=== PATIENT | female | born 1990 | race Caucasian/White ===

== ENCOUNTER 2020-04-19 09:10 | Outpatient (REF) | payer MEDICAID, SELFPAY | END 2020-04-19 09:11 | disposition home or self-care (01) | LOC: HO.LAB 09:10 | PROVIDERS: PCP Internal Medicine; Visit Provider Internal Medicine | DX: Z20.822 Contact with and (suspected) exposure to COVID-19 (principal) | CPT/HCPCS: 36415; C9803; U0003; U0005 ==

== ENCOUNTER 2021-08-01 10:36 | Outpatient (REF) | payer MEDICAID, SELFPAY ==
--- NOTE | ~2021-08-01 | XR_ITS ---
EXAMINATION: XR KNEE, RIGHT CLINICAL INFORMATION: Pain COMPARISON: None TECHNIQUE: Four views of the right knee. FINDINGS: Bones and soft tissues are normal. No fracture or joint effusion. Alignment is anatomic. Joint spaces are well maintained. No abnormal soft tissue calcification. XR/XR knee RT 3V IMPRESSION: Unremarkable right knee.
== END 2021-08-01 10:37 | disposition home or self-care (01) ==
LOC: HO.XRAY 10:36
PROVIDERS: PCP Internal Medicine; Visit Provider Internal Medicine
DX: M25.561 Pain in right knee (principal)
CPT/HCPCS: 73562

== ENCOUNTER 2022-03-12 10:00 | Outpatient (RCR) | payer MEDICAID, SELFPAY ==
[2022-02-12 10:17] VITALS: BP 142/80; PULSE 81; O2SAT 98
== END 2022-07-12 14:45 | disposition home or self-care (01) ==
LOC: HO.PTWFD 10:00
PROVIDERS: PCP Internal Medicine; Visit Provider General Practice
DX: S93.402D Sprain of unspecified ligament of left ankle, subsequent encounter (principal)
CPT/HCPCS: 97110; 97140; 97161; 97535

== ENCOUNTER 2023-01-23 10:36 | Outpatient (REF) | payer MEDICAID, SELFPAY ==
--- NOTE | ~2023-01-23 | XR_ITS ---
EXAMINATION: XR CHEST CLINICAL INFORMATION: Cough and left lateral chest pain COMPARISON: February 2019. TECHNIQUE: 2 views of the chest were obtained. FINDINGS: No airspace consolidation or pneumothorax seen. Minimal linear atelectatic change observed toward the left base. The hilar regions and pulmonary vascularity appear to be stable. Pleural surfaces are clear. XR/XR chest 2V IMPRESSION: No consolidations or effusions. Minimal linear atelectasis toward the left base.
== END 2023-01-23 10:37 | disposition home or self-care (01) ==
LOC: HO.HHCX 10:36
PROVIDERS: Visit Provider Emergency Medicine
DX: R07.9 Chest pain, unspecified (principal)
CPT/HCPCS: 71046

== ENCOUNTER 2023-04-18 16:00 | Outpatient (REF) | payer MEDICAID, SELFPAY | END 2023-04-18 16:01 | disposition home or self-care (01) | LOC: HO.HHCLNP 16:00 | PROVIDERS: Visit Provider Student in an Organized Health Care Education/Training Program | DX: J02.9 Acute pharyngitis, unspecified (principal) | CPT/HCPCS: 87070; 87147 ==

== ENCOUNTER 2024-06-23 15:20 | Outpatient (REF) | payer MEDICAID, SELFPAY ==
[2024-06-23 16:03] LABS: MANUAL DIFF FLAG NO
[2024-06-23 16:08] LABS: Basophils Absolute Auto 0.1 X10*3/uL (0.0-0.2); Basophils Percent Auto 0.5 % (0-2); Eosinophils Absolute Auto 0.1 X10*3/uL (0.0-0.4); Eosinophils Percent Auto 1.2 % (0-4); Hematocrit 41.2 % (37.0-47.0); Hemoglobin 13.4 g/dl (12.0-16.0); Imm Gran Abs Auto 0.03 X10*3/uL (0.00-0.03); Imm Gran Pct Auto 0.3 % (0.0-0.4); Lymphocytes Percent Auto 27.6 % (20-40); Mean Corpuscular HGB Conc 32.5 g/dl (31.0-35.0); Mean Corpuscular Volume 86.2 fL (80.0-98.0); Mean Platelet Volume 11.7 fL (9.4-12.3); Monocytes Absolute Auto 0.9 X10*3/uL (0.1-1.2); Monocytes Percent Auto 8.3 % (2-11); Neutrophils Absolute Auto 6.7 x10*3/uL (2.0-8.3); Neutrophils Percent Auto 62.1 % (45-73); Platelet Count 269 X10*3/uL (160-400); Red Blood Count 4.78 X10*6/uL (4.20-5.50); Red Cell Distribution Width 13.3 % (11.0-16.0); White Blood Count 10.8 X10*3/uL (4.8-10.8)
[2024-06-23 16:11] LABS: Estimated Average Glucose 123 mg/dL; Hemoglobin A1C 145.0137 umol/L; Hemoglobin A1c % 5.9 % (<6.0); Total Hemoglobin (HGBA1C) 3531.9435 umol/L
[2024-06-23 16:22] LABS: Anion Gap 11 (12-20)
[2024-06-23 16:26] LABS: Alanine Aminotransferase 19 U/L (0-31); Albumin Level 4.1 g/dL (3.5-5.0); Alkaline Phosphatase 81 U/L (39-117); Bilirubin Direct < 0.2 mg/dL (0.0-0.5); Bilirubin Total 0.2 mg/dL (0.0-1.0); Blood Urea Nitrogen 9 mg/dL (9-16); Calcium 9.1 mg/dL (8.4-10.2); Carbon Dioxide 25 mmol/L (22-29); Chloride 107 mmol/L (96-108); Cholesterol 224 mg/dL (<200); Estimated Glomerular Filt Rate > 60; Glucose Random 95 mg/dL (60-115); HDL Cholesterol 48 mg/dL (>40); Potassium 3.8 mmol/L (3.3-5.1); Sodium 139 mmol/L (135-145); Total Protein 7.3 g/dL (6.5-8.0); Triglycerides 481 mg/dL (<150)
[2024-06-23 16:40] LABS: Aspartate Amino Transferase 22 U/L (5-31)
[2024-06-23 16:50] LABS: TSH reflex Free T4 0.94 uIU/mL (0.32-4.0); Vitamin D 25-OH Total 15.5 ng/mL (>30)
--- OUTSIDE RECORDS SUMMARY | 2024-06-23 18:11 | XMS_ITS | Encounter Summary ---
Author Organization [employer] Address [address] [place] [address] Care Team Providers Care Security Risk Analyst Name Role Phone Mary Jenkins MD Primary Care Provide r Encounter Details Date Type Department Care Team ([facility] Contact Info) Description 01/30/2023 Orders Only [facility] [address] [place] [phone] Jose Fish MD [address] [place] [phone] Social History Tobacco Use Types Packs/Day Years Used Date Smoking Tobacco: Every Day Cigarettes Smokeless Tobacco: Never Alcohol Use Standard Drinks/Week Comments Yes 0 (1 standard drink = 0.6 oz pur e alcohol) Occasionally Comments Unknown Sex and Gender Information Value Date Recorded Sex Assigned at Female 12/25/2021 10:15 AM EDT Legal Sex Female 10:15 AM EDT Gender Identity Female 12/25/2021 10:15 AM EDT Sexual Orientation Straight 12/25/2021 10 :15 AM EDT documented as of this encounter Plan of Treatment Upcoming Encounters Date Type Department Care Team (Late Contact Info) Description 07/30/2024 11:30 AM EDT Telemedicine [facility] [address] [place] [phone] Mary Jenkins MD [address] [place] [phone] documented as of this encounter Visit Diagnoses Not on filedocumented in this encounter Care Teams Security Risk Analyst Relationship Specialty Start Date End Date Mary Jenkins MD [address] [place] [address] PCP - General Family Medicine 01/29/19 documented as of this encounter
--- OUTSIDE RECORDS SUMMARY | 2024-06-23 18:11 | XMS_ITS | Encounter Summary ---
Author Organization [employer] Address [address] [place] [address] Care Team Providers Care Second Ride Fare Collector Name Role Phone Mary Jenkins MD Primary Care Provide r Encounter Details Date Type Department Care Team (Latest Contact Info) Description 06/23/2024 Travel Social History Tobacco Use Types Packs/Day Years Used Date Smoking Tobacco: Every Day Cigarettes Smokeless Tobacco: Never Alcohol Use Standard Drinks/Week Comments Yes 0 (1 standard drink = 0.6 oz pur e alcohol) Occasionally Depression Answer Date Recorded Patient Health Questionnaire-9 Score 4 06/05/2023 Patient Health Questionnaire-9 Score 4 06/05/2023 Last PHQ-9: Questionnaire Data Not on file 0 06/05/2023 Housing Stability Answer Date Recorded What is your housing situation today? I have nilda hurley 05/29/[address] you li ve. Do you have problems with any of the following? None of the above 05/29/2023 Food Insecurity Answer Date Recorded Within the past 12 months, y ou worried that your food would run out before you got money to buy more: Never True 05/29/2023 Within the past 12 months,th e food you bought just didn't last and you didn't have enough money to get more: Never True 04/2023 Transportation Answer Date Recorded In the past 12 months, has l ack of transportation kept you from medical appts, meetings, work or from getting things needed for daily living? No 05/29/2023 Utilities Answer Date Recorded In the past 12 months, has t he electric, gas, oil or water company threatened to shut off services in your home? No 05/29/2023 Depression Answer Date Recorded Patient Health Questionnaire-2 Score 1 06/05/2023 Comments Unknown Sex and Gender Information Value Date Recorded Sex Assigned at Female 12/25/2021 10:15 AM EDT Legal Sex Female 10:15 AM EDT Gender Identity Female 12/25/2021 10:15 AM EDT Sexual Orientation Straight 12/25/2021 10 :15 AM EDT documented as of this encounter Plan of Treatment Upcoming Encounters Date Type Department Care Team (Late st Contact Info) Description 07/30/2024 11:30 AM EDT Telemedicine [facility] [address] [place] [phone] Mary Jenkins MD [address] [place] [address] documented as of this encounter Visit Diagnoses Not on filedocumented in this encounter Additional Health Concerns Assessment Noted Time PHQ-9 Depression Total Score: 4 06/05/19 24 11:00 AM EDT documented as of this encounter Care Teams Second Ride Fare Collector Relationship Specialty Start Date End Date Mary Jenkins MD [address] [place] [address] PCP - General Family Medicine 01/29/19 documented as of this encounter
--- OUTSIDE RECORDS SUMMARY | 2024-06-23 18:11 | XMS_ITS | Encounter Summary ---
Author Organization [employer] Address [address] [place] [address] Care Team Providers Care Machine Clothing Replacer Name Role Phone Mary Jenkins MD Primary Care Provide r Reason for Visit * Reason Onset Date Comments call back requested 01/28/2023 Encounter Details Date Type Department Care Team ([facility] Contact Info) Description 01/28/2023 Telephone [facility] [address] [place], [place] [phone] Mary Jenkins MD [address] [place] [phone] call back requested Social History Tobacco Use Types Packs/Day Years [...] AM EDT documented as of this encounter Miscellaneous Notes * Telephone Encounter - Conchis Santo - 01/28/2023 2:43 PM EST Tc from pt calling requesting a call back with X-ray results. PCP DR. Gruber documented in this encounter Plan of Treatment Upcoming Encounters Date Type Department Care Team ([facility] Contact Info) Description 07/30/2024 11:30 AM EDT Telemedicine [facility] [address] [place] [address] Mary Jenkins MD [address] [place] [phone] documented as of this encounter Visit Diagnoses Not on filedocumented in this encounter Care Teams Machine Clothing Replacer Relationship Specialty Start Date End Date Mary Jenkins MD [address] [place] [phone] PCP - General Family Medicine 01/29/19 documented as of this encounter
--- OUTSIDE RECORDS SUMMARY | 2024-06-23 18:11 | XMS_ITS | Encounter Summary ---
Author Organization [employer] Address [address] [place] [address] Care Team Providers Care Service Order Clerk Name Role Phone Mary Jenkins MD Primary Care Provide r Reason for Visit * Reason Comments Annual Exam Encounter Details Date Type Department Care Team ([facility] Contact Info) Description 06/23/2024 2:45 PM EDT Office Visit [facility] [address] [place], [place] [phone] Mary Jenkins MD [address] [place] [address] Encounter for preventive health examination (Primary Dx); Class 3 severe obesity due to excess calories with serious comorbidity and body mass index (BMI) of 40.0 to 44.9 in adult; SUNITHA (obstructive sleep apnea); Mixed anxiety and depressive disorder; Mild intermittent asthma with acute exacerbation Social History Tobacco Use Types Packs/Day Years Used Date Smoking Tobacco: Every Day Cigarettes Smokeless Tobacco: Never Tobacco Cessation:Ready to Q uit: Not Asked; Counseling Given: Not Answered Alcohol Use Standard Drinks/Week Comments Yes 0 [...] the past 12 months, has t he [employer], gas, oil or water company threatened to [...] AM EDT documented as of this encounter Last Filed Vital Signs Vital Sign Reading Time Taken Comments Blood Pressure 138/82 06/23/2024 2:48 PM EDT Pulse 94 06/23/2024 2:48 PM EDT Temperature 36.2 ??C (97.2 ??F) 06/23/2024 2:48 PM ED T Respiratory Rate 16 06/23/2024 2:48 PM EDT Oxygen Saturation 97% 06/23/2024 2:48 PM EDT Inhaled Oxygen Concentration - - Weight 109 kg (240 lb) 06/23/2024 2:48 PM EDT Height 162.6 cm (5' 4 ) 06/23/2024 2:48 PM EDT Body Mass Index 41.2 06/23/2024 2:48 PM EDT documented in this encounter Progress Notes * Mary Feliciano MD - 06/23/2024 2:45 PM EDT SUBJECTIVE: Martha Valenzuela is a 34 y.o. year old female who presents for Physical . Concerns for today's visit: Occupation:[employer] Lives with:2 kids Social Hx: denies drinking EtOH, smoking cigarettes 1/2 pack daily and denies recreational drug use. Diet:regular Exercise:walks 20min ever day LMP:05/14/24 Pap Smear: due on 11/30/2026 Eye Care:up to date Dental Care:up to date PMHx:see below Immunizations: Reviewed Acute Concerns: Weight concerns she reports she struggles to lose weight she has being trying healthy diet and exercise but instead of losing weight she feels she is gaining weight Social History Social History Narrative Not on file Patient Active Problem List Diagnosis Hypersomnia Mixed anxiety and depressive disorder Prediabetes Tobacco dependence SUNITHA (obstructive sleep apnea) Asthma Pharyngitis Encounter for preventive health examination Class 2 severe obesity due to excess calories with serious comorbidity and body mass index (BMI) of39.0 to 39.9 in adult (CMS/HCC) Class 3 severe obesity due to excess calories with serious comorbidity and body mass index (BMI) of40.0 to 44.9 in adult No family history on file. Review of Systems Constitutional: Positive for unexpected weight change. Negative for activity change, appetite change, chills, diaphoresis, fatigue and fever. HENT: Negative. Respiratory: Negative. Cardiovascular: Negative. OBJECTIVE: Vitals: 06/23/24 1448 BP: 138/82 BP Location: Left arm Patient Position: Sitting BP Cuff Size: Large adult Pulse: 94 Resp: 16 Temp: 97.2 ??F (36.2 ??C) TempSrc: Oral SpO2: 97% Weight: 240 lb (109 kg) Height: 5' 4 (1.626 m) Physical Exam Constitutional: Appearance: Normal appearance. Cardiovascular: Rate and Rhythm: Normal rate and regular rhythm. Pulmonary: Effort: Pulmonary effort is normal. Breath sounds: Normal breath sounds. Abdominal: General: Abdomen is flat. Palpations: Abdomen is soft. Musculoskeletal: Right lower leg: No edema. Left lower leg: No edema. Neurological: Mental Status: She is alert. Follow Up: Follow up for 2 weeks televisit review of labs . Current Outpatient Medications on File Prior to Visit Medication Sig Dispense Refill albuterol 108 (90 Base) MCG/ACT inhaler Inhale 2 puffs every 4 (four) hours if needed for wheezing or shortness of breath. 18 g 2 cholecalciferol (Vitamin D-3) 50 MCG (2000 UT) capsule Take 1 capsule by mouth at bed time. D3 Super Strength 50 MCG (2000 UT) capsule Take 50 mcg by mouth in the morning. ergocalciferol (Vitamin D-2) 1.25 MG (30121 UT) capsule take 1 capsule by oral route every week hydrocortisone 1 % cream Apply topically every 12 (twelve) hours. hydrOXYzine HCl (Atarax) 25 MG tablet Take 25 mg by mouth if needed in the morning and at bedtime. Menthol (Cepacol Sore Throat) 5.4 MG lozenge Dissolve 1 tablet in the mouth every 2 (two) hours if needed (sore throat). 20 lozenge 0 naproxen (Naprosyn) 500 MG tablet Take 1 tablet by mouth every 12 (twelve) hours. nicotine (Nicoderm, Step 1) 21 MG/24HR patch APPLY 1 PATCH TOPICALLY TO THE SKIN DAILY IN THE MORNING THEN REMOVE AT BEDTIME DIRECTED. DO NOT SMOKE WHILE USING PATCH sertraline (Zoloft) 25 MG tablet Take 25 mg by mouth in the morning. Spacer/Aero-Holding Chambers (OptiChamber Naila) misc 1 each every 4 (four) hours if needed (asthma). 1 each 0 tiZANidine (Zanaflex) 2 MG tablet Take 1 tablet (2 mg) by mouth every 6 (six) hours if needed for muscle spasms for up to 10 days. 30 tablet 0 No current facility-administered medications on file prior to visit. Problem List Items Addressed This Visit Class 3 severe obesity due to excess calories with serious comorbidity and body mass index (BMI) of40.0 to 44.9 in adult Extensive counseling about healthy diet and exercise on today I will order TSH with labs and I will follow-up with patient regarding options for weight loss Relevant Orders CBC auto differential Comprehensive Metabolic Panel Hemoglobin A1c HIV-1/2 Antigen and Antibodies, Fourth Generation, with Reflexes Hepatitis C Antibody with Reflex to HCV, RNA, Quantitative, Real-Time PCR Lipid Panel, Standard Vitamin D, 25-Hydroxy, Total, Immunoassay TSH with Reflex to Free T4 SUNITHA (obstructive sleep apnea) Continue to use CPAP every night Encounter for preventive health examination - Primary See HPI Relevant Orders CBC auto differential Comprehensive Metabolic Panel Hemoglobin A1c HIV-1/2 Antigen and Antibodies, Fourth Generation, with Reflexes Hepatitis C Antibody with Reflex to HCV, RNA, Quantitative, Real-Time PCR Lipid Panel, Standard Vitamin D, 25-Hydroxy, Total, Immunoassay TSH with Reflex to Free T4 Mixed anxiety and depressive disorder Counseling done continue with sertraline 25 mg daily Asthma Stable continue with same interventions documented in this encounter Miscellaneous Notes * Assessment & Plan Note - Mary Feliciano MD - 06/23/2024 3:51 PM EDT Associated Problem(s): Asthma Stable continue with same interventions * Assessment & Plan Note - Mary Feliciano MD - 06/23/2024 3:51 PM EDT Associated Problem(s): Mixed anxiety and depressive disorder Counseling done continue with sertraline 25 mg daily * Assessment & Plan Note - Mary Feliciano MD - 06/23/2024 3:50 PM EDT Associated Problem(s): Encounter for preventive health examination See HPI * Assessment & Plan Note - Mary Feliciano MD - 06/23/2024 3:50 PM EDT Associated Problem(s): Class 3 severe obesity due to excess calories with serious comorbidity and body mass index (BMI) of 40.0 to 44.9 in adult Extensive counseling about healthy diet and exercise on today I will order TSH with labs and I will follow-up with patient regarding options for weight loss * Assessment & Plan Note - Mary Feliciano MD - 06/23/2024 3:50 PM EDT Associated Problem(s): SUNITHA (obstructive sleep apnea) Continue to use CPAP every night documented in this encounter Plan of Treatment Upcoming Encounters Date Type Department Care Team (Late st Contact Info) Description 07/30/2024 11:30 AM EDT Telemedicine [facility] [address] [place] [phone] Mary Jenkins MD [address] [place] [phone] Scheduled Orders Name Type Priority Associated Diagnoses Orde r Schedule HIV-1/2 Antigen and Antibodies, Fourth Generation, with Reflexes Lab Routine Class 3 severe obesity due to excess calories with serious comorbidity and body mass index (BMI) of 40.0 to 44.9 in adult ([facility]) Encounter for preventive health examination Expected: 06/23/2024 (Approximate), Expires: 06/23/2025 Hepatitis C Antibody with Reflex to HCV, RNA, Quantitative, Real-Time PCR Lab Routine Class 3 severe obesity due to excess calories with serious comorbidity and body mass index (BMI) of 40.0 to 44.9 in adult ([facility]) Encounter for preventive health examination Expected: 06/23/2024, Expires: 06/23/2025 documented as of this encounter Procedures Procedure Name Priority Date/Time Associated Diagnosis Comments VITAMIN D,25-OH,TOTAL,IA Routine 06/23/2024 3:22 PM EDT Class 3 severe obesity due to excess calories with serious comorbidity and body mass index (BMI) of 40.0 to 44.9 in adult Encounter for preventive health examination TSH W/REFLEX TO FT4 Routine 06/23/2024 3 :22 PM EDT Class 3 severe obesity due to excess calories with serious comorbidity and body mass index (BMI) of 40.0 to 44.9 in adult Encounter for preventive health examination CBC WITH AUTO DIFFERENTIAL Routine 06/23/2024 3:22 PM EDT Class 3 severe obesity due to excess calories with serious comorbidity and body mass index (BMI) of 40.0 to 44.9 in adult Encounter for preventive health examination HEMOGLOBIN A1C Routine 06/23/2024 3:22 PM EDT Class 3 severe obesity due to excess calories with serious comorbidity and body mass index (BMI) of 40.0 to 44.9 in adult Encounter for preventive health examination LIPID PANEL, STANDARD Routine 06/23/2024 3:22 PM EDT Class 3 severe obesity due to excess calories with serious comorbidity and body mass index (BMI) of 40.0 to 44.9 in adult Encounter for preventive health examination COMPREHENSIVE METABOLIC PANEL Routine 06/23/2024 3:22 PM EDT Class 3 severe obesity due to excess calories with serious comorbidity and body mass index (BMI) of 40.0 to 44.9 in adult Encounter for preventive health examination documented in this encounter Results * TSH with Reflex to Free T4 (06/23/2024 3:22 PM EDT) TSH reflex Free T4 0.94 0.32 - 4.0 uIU/mL [facility] Blood Venous blood specimen / Unknown 06/23/2024 3:22 PM EDT 06/23/2024 3:59 PM EDT us Mary Feliciano MD LAB BLOOD ORDERABLES Final Result [facility] [address] [place] [phone] * (ABNORMAL) Vitamin D, 25-Hydroxy, Total, Immunoassay (06/23/2024 3:22 PM EDT) Vitamin D 25-OH Total 15.5(L) >30 ng/mL [facility] Comment: Health Based Reference Values*< 20 ??ng/mL ??Ajdcggeev40-91 ng/mL ??Insufficient> 30 ??ng/mL ??Sufficient*Hayley WEAVER. N Engl J Med. 2007;357:266-280There is no well-established upper level of normal vitamin Dlevels. Some laboratories use 50 ng/mL as an upper limit ofnormal. However, toxicity is patient-dependent and may occurat any level. Careful correlation with the patient'spresentation is necessary and, if there is concern forvitamin D toxicity, treatment should be consideredirrespective of the serum level.Care must be taken in interpreting Vitamin D results fromdifferent laboratories and methodologies. ??Published datademonstrated that results from patients undergoinghemodialysis may show a negative bias when tested withvarious automated 25-OH vitamin D assays when compared toLC- MS/MS.When testing samples from patients whose predominant form ofVitamin D is Vitamin D2, such as patients receiving VitaminD2 supplementation, results that are subtherapeutic shouldbe confirmed with another method such as LC-MS/MS. Blood Venous blood specimen / Unknown 06/23/2024 3:22 PM EDT 06/23/2024 3:59 PM EDT us Mary Feliciano MD LAB BLOOD ORDERABLES Final Result [facility] [address] [place] [phone] * (ABNORMAL) Lipid Panel, Standard (06/23/2024 3:22 PM EDT) Triglycerides 481(H) <150 mg/dL [facility] Comment:Desirable Triglyceri de: less than 150 mg/dLBorderline High Triglyceride 150-199 mg/dLHigh Triglyceride: 200-499 mg/dLVery High Triglyceride: greater than or equal to 5OO mg/dL Cholesterol 224(H) <200 mg/dL [facility] Comment:Desirable Cholestero l: less than 200 mg/dLBorderline High Cholesterol: 200-239 mg/dLHigh Cholesterol: greater than 239 mg/dL LDL Cholesterol Calculated TNP <100 mg/dL [facility] Comment:Unable to calculate the LDL. The formula of Friedwald,Huffman, and Eryn is only valid if the triglycerides areless than 400 mg/dl. HDL Cholesterol 48 >40 mg/dL [facility] Comment:Desirable HDL: great er than 40 mg/dL Note: This HDL assay may give artificially low results in patients with liver disease. Blood Venous blood specimen / Unknown 06/23/2024 3:22 PM EDT 06/23/2024 3:59 PM EDT us Mary Feliciano MD LAB BLOOD ORDERABLES Final Result Performing Organization Address [facility] de Phone Number [facility] [address] [place] [phone] * Hemoglobin A1c (06/23/2024 3:22 PM EDT) Hemoglobin A1c 5.9 <6.0 % [facility] Comment:Hemoglobin A1C Refer ence Range Adults: 4.8 - 6.0 % Non diabetic: < 6.0 % Goal: < 7.0 %Additional Action Suggested: > 8.0 %Note: Hemoglobin A1c results are invalid for patients with abnormal amounts of HbF. Blood transfusions may impact the HbA1c concentration in the patient sample. Estimated Average Glucose 123 mg/dL [facility] Comment:eAG = Estimated ave rage glucose which is %A1C expressed asaverage glucose, using the formula of the W9Y-WtzukjmQszeeaj Glucose study (ADAG), Diabetes Care, Vol.31,#8,Sep. 2007 Blood Venous blood specimen / Unknown 06/23/2024 3:22 PM EDT 06/23/2024 3:59 PM EDT us Mary Feliciano MD LAB BLOOD ORDERABLES Final Result Performing Organization Address [facility] Co de Phone Number [facility] [address] [place] [phone] * (ABNORMAL) Comprehensive Metabolic Panel (06/23/2024 3:22 PM EDT) Sodium 139 135 - 145 mmol/L [facility] Potassium 3.8 3.3 - 5.1 mmol/L [facility] Chloride 107 96 - 108 mmol/L [facility] Carbon Dioxide 25 22 - 29 mmol/L [facility] Anion Gap 11(L) 12 - 20 [facility] Urea Nitrogen (BUN) 9 9 - 16 mg/dL [facility] Creatinine, Serum 0.68 0.5 - 1.4 mg/dL [facility] Estimated Glomerular Filt Rate >60 [facility] Comment:Chronic Kidney Disea se: Estimated GFR < 60 mL/min/1.96m1Ipnfpo Kidney Disease: Estimated GFR < 15 mL/min/1.73m2 Glucose 95 60 - 115 mg/dL [facility] Calcium 9.1 8.4 - 10.2 mg/dL [facility] Bilirubin, Total 0.2 0.0 - 1.0 mg/dL [facility] Aspartate Amino Transferase 22 5 - 31 U/L [facility] Alanine Aminotransferase 19 0 - 31 U/L [facility] Total Protein 7.3 6.5 - 8.0 g/dL [facility] Albumin Level 4.1 3.5 - 5.0 g/dL [facility] Alkaline Phosphatase 81 39 - 117 U/L [facility] Blood Venous blood specimen / Unknown 06/23/2024 3:22 PM EDT 06/23/2024 3:59 PM EDT us Mary Feliciano MD LAB BLOOD ORDERABLES Final Result [facility] [address] [place] [phone] * CBC auto differential (06/23/2024 3:22 PM EDT) White Blood Count 10.8 4.8 - 10.8 X10*3/uL [facility] Red Blood Count 4.78 4.20 - 5.50 X10*6/uL [facility] Hemoglobin 13.4 12.0 - 16.0 g/dl [facility] Hematocrit 41.2 37.0 - 47.0 % [facility] Mean Corpuscular Volume 86.2 80.0 - 98.0 fL [facility] Mean Corpuscular Hemoglobin 28.0 27.0 - 33.0 pg [facility] Mean Corpuscular HGB Conc 32.5 31.0 - 35.0 g/dl [facility] Red Cell Distribution Width 13.3 11.0 - 16.0 % [facility] Platelet Count 269 160 - 400 X10*3/uL [facility] Mean Platelet Volume 11.7 9.4 - 12.3 fL [facility] Neutrophils Percent Auto 62.1 45 - 73 % [facility] Imm Gran Pct Auto 0.3 0.0 - 0.4 % [facility] Lymphocytes Percent Auto 27.6 20 - 40 % [facility] Monocytes Percent Auto 8.3 2 - 11 % [facility] Eosinophils Percent Auto 1.2 0 - 4 % [facility] Basophils Percent Auto 0.5 0 - 2 % [facility] NRBC Pct Auto 0.0 0.0 - 0.2 /100WBC [facility] Neutrophils Absolute Auto 6.7 2.0 - 8.3 x10*3/uL [facility] Imm Gran Abs Auto 0.03 0.00 - 0.03 X10*3/uL [facility] Lymphocytes Absolute Auto 3.0 1.2 - 4.9 X10*3/uL [facility] Monocytes Absolute Auto 0.9 0.1 - 1.2 X10*3/uL [facility] Eosinophils Absolute Auto 0.1 0.0 - 0.4 X10*3/uL [facility] Basophils Absolute Auto 0.1 0.0 - 0.2 X10*3/uL [facility] NRBC Abs Auto 0.000 0.0 - 0.012 X10*3/uL [facility] Blood Venous blood specimen / Unknown 06/23/2024 3:22 PM EDT 06/23/2024 3:59 PM EDT us Mary Feliciano MD LAB BLOOD ORDERABLES Final Result [facility] [address] [place] [phone] documented in this encounter Visit Diagnoses Diagnosis Encounter for preventive health examination- Primary Class 3 severe obesity due to excess calories with serious comorbidity and body mass index (BMI) of 40.0 to 44.9 in adult SUNITHA (obstructive sleep apnea) Obstructive sleep apnea (adult) (pediatric) Mixed anxiety and depressive disorder Dysthymic disorder Mild intermittent asthma with acute exacerbation documented in this encounter Additional Health Concerns Assessment Noted Time PHQ-9 Depression Total Score: 4 06/05/19 24 11:00 AM EDT documented as of this encounter Care Teams Service Order Clerk Relationship Specialty Start Date End Date Mary Jenkins MD [address] [place] [phone] PCP - General Family Medicine 01/29/19 documented as of this encounter
--- OUTSIDE RECORDS SUMMARY | 2024-06-23 18:11 | XMS_ITS | Clinical Summary ---
Author Organization [employer] Address [address] [facility] [address] [place] [address] Care Team Providers Care Bi Application Developer Name Role Phone Mary Jenkins MD Primary Care Provide r Allergies No known active allergies Medications cholecalciferol (Vitamin D-3) 50 MCG (2000 UT) capsule Take 1 capsule by mouth at bed time. 2 Active D3 Super Strength 50 MCG (2000 UT) capsule Take 50 mcg by mouth in the morning. 2 Active ergocalciferol (Vitamin D-2) 1.25 MG (23966 UT) capsule take 1 capsule by oral route every week 0 Active hydrocortisone 1 % cream Apply topically every 12 (twelve) hours. 0 Active hydrOXYzine HCl (Atarax) 25 MG tablet Take 25 mg by mouth if needed in the morning and at bedtime. 2 Active nicotine (Nicoderm, Step 1) 21 MG/24HR patch APPLY 1 PATCH TOPICALLY TO THE SKIN DAILY IN THE MORNING THEN REMOVE AT BEDTIME DIRECTED. DO NOT SMOKE WHILE USING PATCH 2 Active naproxen (Naprosyn) 500 MG tablet Take 1 tablet by mouth every 12 (twelve) hours. 2 Active sertraline (Zoloft) 25 MG tablet Take 25 mg by mouth in the morning. 2 Active tiZANidine (Zanaflex) 2 MG tablet Take 1 tablet (2 mg) by mouth every 6 (six) hours if needed for muscle spasms for up to 10 days. 30 tablet 3 Active albuterol 108 (90 Base) MCG/ACT inhaler Inhale 2 puffs every 4 (four) hours if needed for wheezing or shortness of breath. 18 g 2 3 Active Spacer/Aero-Hol ding Chambers (OptiChamber Naila) misc 1 each every 4 (four) hours if needed (asthma). 1 each 3 Active Menthol (Cepacol Sore Throat) 5.4 MG lozenge Dissolve 1 tablet in the mouth every 2 (two) hours if needed (sore throat). 20 lozenge 4 Active Active Problems Problem Noted Date Diagnosed Date Class 3 severe obesity due t o excess calories with serious comorbidity and body mass index (BMI) of 40.0 to 44.9 in adult 06/23/2024 Assessment & Plan (06/23/2024 3:50 PM EDT): Extensive counseling about healthy diet and exercise on today I will order TSH with labs and I will follow-up with patient regarding options for weight loss Encounter for preventive health examination 05/26 Assessment & Plan (06/23/2024 3:50 PM EDT): See HPI Assessment & Plan (06/05/2023 2:04 PM EDT): See HPI Class 2 severe obesity due t o excess calories with serious comorbidity and body mass index (BMI) of 39.0 to 39.9 in adult 06/05/2023 Pharyngitis 04/20/2023 Assessment & Plan (04/20/2023 9:20 PM EST): Pt with significant sore throat ,purulent exudates in tonsils,anterior cervical LDN afebrile here but with mild sinus tachy Symptoms are highly suggestive for strep throat Here today COVID,Flu and strep are neg . I repeated rapid strep throat test and again neg Still think clinically pt may have strep throat so will start empiric tx and if neg will consider viral etiology as CMV,EBV,adenovirus -send throat cx -start amoxicillin BID x 10 days -if neg throat cx will call pt to stop ATB -supportive tx -alarms igns and symptoms discussed w pt Tobacco dependence 01/23/2023 SUNITHA (obstructive sleep apnea) 01/23/2023 Assessment & Plan (06/23/2024 3:50 PM EDT): Continue to use CPAP every night Asthma 01/23/2023 Assessment & Plan (06/23/2024 3:51 PM EDT): Stable continue with same interventions Hypersomnia 02/06/2022 Mixed anxiety and depressive disorder 02/06/2022 Assessment & Plan (06/23/2024 3:51 PM EDT): Counseling done continue with sertraline 25 mg daily Prediabetes 02/06/2022 Assessment & Plan (06/05/2023 2:04 PM EDT): Today extensive discussion was done about life style modifications I advise healthy diet (low calorie) and cardiovascular exercise Encounters Date Type Department Care Team Description 06/23/2024 2:45 PM EDT Office Visit [facility] [address] [place] [phone] Mary Jenkins MD Encounter for preventive health examination (Primary Dx); Class 3 severe obesity due to excess calories with serious comorbidity and body mass index (BMI) of 40.0 to 44.9 in adult; SUNITHA (obstructive sleep apnea); Mixed anxiety and depressive disorder; Mild intermittent asthma with acute exacerbation 06/23/2024 Travel 06/12/2024 Patient Outreach [facility] [address] [place] [phone] Mary Jenkins MD Pre-visit Planning ((Unable to reach for PVP screening, LVM)) 06/03/2024 Telephone [facility] [address] [place], [place] [phone] Mary Jenkins MD Appointment Request 05/08/2024 Population Health Risk Score [facility] ([facility] Department [address] [phone] Provider, Population Health Generic from Last 3 Months Immunizations Name Administration Dates Next Due HPV, Quadrivalent 09/18/2011 Influenza injectable quadriv alent IIV4 with preservative 01/07/2010 Influenza injectable quadriv alent preservative free 12/07/2019 Cj SARS-CoV-2 Vaccination 09/07/2020 Pfizer Covid-19 Vaccine 12+ 06/05/2023,0 03/23/2021,04/19/2020,03/29 Pneumococcal Conjugate PCV 20 06/05/2023 Pneumococcal Polysaccharide PPSV23 08/12/2015 Tdap 07/26/2015 Social History Tobacco Use Types Packs/Day Years [...] Orientation Straight 12/25/2021 10 :15 AM EDT Last Filed Vital Signs Vital Sign Reading [...] Mass Index 41.2 06/23/2024 2:48 PM EDT Plan of Treatment Upcoming Encounters Date Type Department Care Team (Late st Contact Info) Description 07/30/2024 11:30 AM EDT Telemedicine [facility] [address] [place], [place] [phone] Mary Jenkins MD [address] [place] [phone] Health Maintenance Due Date Last Done Comments Alcohol/Substance Use Screening 2001 Family Planning (PISQ) 02/25/2004 Hepatitis B Vaccines (1 of 3 - 19+ 3-dose series) 02/25/2008 HPV Vaccines (2 - 3-dose series) 10/16/2011 09/18/2011 COVID-19 Vaccine ( season) 2023 06/05/2023, 11/24/2021, 03/23/2021, Additional history exists Influenza Vaccine (#1) 2023 12/07/2019, 2009 SDOH Screening 05/28/2024 05/29/2023 Depression Screening 06/04/2024 06/05/2023, 06/05/19 24 Diabetes: Hemoglobin A1C 06/23/2025 025, 06/05/2023, 11/03/2021, Additional history exists Tobacco Screening 06/23/2025 06/23/2024 DTaP/Tdap/Td Vaccines (2 - Td or Tdap) 07/25/2025 07/26/2015 Cervical Cancer Screening 11/30/2026 HPV/Cotest 11/30/2026 11/30/2021 Pap Smear 11/30/2026 11/30/2021 Lipid Panel 06/23/2029 06/23/2024, 09/0 10/2021, 12/11/2019 Zoster Vaccines (1 of 2) 2039 RSV Patients and Patients Aged 60 years or older (1 - 1-dose 75+ series) 02/25/2064 HIV Screening Completed 12/11/2019, 02/11/2019 Hepatitis C Screening Completed 12/11/2019 Pneumococcal Vaccine: Pediatrics (0 to 5 Years) and At-Risk Patients (6 to 49) Years) Completed 06/05/2023, 08/12/2015 HIB Vaccines Aged Out No longer eligi ble based on patient's age to complete this topic Hepatitis A Vaccines Aged Out No long er eligible based on patient's age to complete this topic IPV Vaccines Aged Out No longer eligi ble based on patient's age to complete this topic Meningococcal Vaccine Aged Out No darius maryana eligible based on patient's age to complete this topic RSV under 20 months Aged Out No longe r eligible based on patient's age to complete this topic Rotavirus Vaccines Aged Out No longer eligible based on patient's age to complete this topic Procedures Procedure Name Priority Date/Time Associated Diagnosis Comments TSH W/REFLEX TO FT4 Routine 06/23/2024 3 :22 PM EDT Class 3 severe obesity due to excess calories with serious comorbidity and body mass index (BMI) of 40.0 to 44.9 in adult Encounter for preventive health examination VITAMIN D,25-OH,TOTAL,IA Routine 06/23/2024 3:22 PM EDT [...] in adult Encounter for preventive health examination HEPATIC FUNCTION PANEL Routine 3:22 PM EDT Encounter for preventive health examination THINPREP IMAGING PAP AND HPV MRNA E6/E7, WITH CT/NG, TRICHOMONAS Routine 11/30/2021 12:00 AM EDT ZZZ HISTORICAL HEPATITIS C AB W/REFL TO HCV RNA, QN, PCR Routine 12/11/2019 3:27 PM EDT HIV 1/2 ANTIGEN/ANTIBODY, FOURTH GENERATION W/RFL Routine 12/11/2019 3:27 PM EDT from Last 3 Months or Most Recently Relevant to Health Maintenance Results * (ABNORMAL) Vitamin D, 25-Hydroxy, Total, Immunoassay (06/23/2024 3:22 PM EDT) Pathologist [facility] Vitamin D 25-OH Total 15.5(L) >30 ng/mL [facility] Comment: Health Based Reference Values*< 20 ??ng/mL ??Pugkpbkis46-61 ng/mL ??Insufficient> 30 ??ng/mL ??Sufficient*Hayley WEAVER. N [...] BLOOD ORDERABLES Final Result Performing Organization Address [facility]/ZIP Co de Phone Number [facility] [address] [place] [phone] * TSH with Reflex to Free T4 (06/23/2024 3:22 PM EDT) TSH reflex Free T4 0.94 0.32 - 4.0 uIU/mL [facility] Blood Venous blood specimen / Unknown 06/23/2024 3:22 PM EDT 06/23/2024 3:59 PM EDT Mary Feliciano MD LAB BLOOD ORDERABLES Final Result Performing Organization Address [facility]/ZIP Co de Phone Number [facility] [address] [place] [phone] * CBC auto differential (06/23/2024 3:22 PM EDT) White Blood Count 10.8 4.8 - 10.8 X10*3/uL [facility] Red Blood Count 4.78 4.20 - 5.50 X10*6/uL [facility] Hemoglobin 13.4 12.0 - 16.0 g/dl [facility] Hematocrit 41.2 37.0 - 47.0 % [facility] Mean Corpuscular Volume 86.2 80.0 - 98.0 fL [facility] Mean Corpuscular Hemoglobin 28.0 27.0 - 33.0 pg [facility] Mean Corpuscular HGB Conc 32.5 31.0 - 35.0 g/dl [facility] Red Cell Distribution Width 13.3 11.0 - 16.0 % [facility] Platelet Count 269 160 - 400 X10*3/uL [facility] Mean Platelet Volume 11.7 9.4 - 12.3 fL [facility] Neutrophils Percent Auto 62.1 45 - 73 % [facility] Imm Gran Pct Auto 0.3 0.0 - 0.4 % [facility] Lymphocytes Percent Auto 27.6 20 - 40 % [facility] Monocytes Percent Auto 8.3 2 - 11 % [facility] Eosinophils Percent Auto 1.2 0 - 4 % [facility] Basophils Percent Auto 0.5 0 - 2 % [facility] NRBC Pct Auto 0.0 0.0 - 0.2 /100WBC [facility] Neutrophils Absolute Auto 6.7 2.0 - 8.3 x10*3/uL [facility] Imm Gran Abs Auto 0.03 0.00 - 0.03 X10*3/uL [facility] Lymphocytes Absolute Auto 3.0 1.2 - 4.9 X10*3/uL [facility] Monocytes Absolute Auto 0.9 0.1 - 1.2 X10*3/uL [facility] Eosinophils Absolute Auto 0.1 0.0 - 0.4 X10*3/uL [facility] Basophils Absolute Auto 0.1 0.0 - 0.2 X10*3/uL [facility] NRBC Abs Auto 0.000 0.0 - 0.012 X10*3/uL [facility] Blood Venous blood specimen / Unknown 06/23/2024 3:22 PM EDT 06/23/2024 3:59 PM EDT Mary Feliciano MD LAB BLOOD ORDERABLES Final Result Performing Organization Address [facility] Co de Phone Number [facility] [address] [place] [phone] * Hemoglobin A1c (06/23/2024 3:22 PM EDT) Hemoglobin A1c 5.9 <6.0 % [facility] Comment:Hemoglobin A1C Refer ence Range Adults: 4.8 - 6.0 % Non diabetic: < 6.0 % Goal: < 7.0 %Additional Action Suggested: > 8.0 %Note: Hemoglobin A1c results are invalid for patients with abnormal amounts of HbF. Blood transfusions may impact the HbA1c concentration in the patient sample. Estimated Average Glucose 123 mg/dL [facility] Comment:eAG = Estimated ave rage glucose which is %A1C expressed asaverage glucose, using the formula of the C6I-TqqlgrwYjlnvhf Glucose study (ADAG), Diabetes Care, Vol.31,#8,Sep. 2007 Blood Venous blood specimen / Unknown 06/23/2024 3:22 PM EDT 06/23/2024 3:59 PM EDT us Mary Feliciano MD LAB BLOOD ORDERABLES Final Result Performing Organization Address [facility] Co de Phone Number [facility] [address] [place] [phone] * Hepatic Function Panel (06/23/2024 3:22 PM EDT) Bilirubin, Direct <0.2 0.0 - 0.5 mg/dL [facility] Blood Venous blood specimen / Unknown 06/23/2024 3:22 PM EDT 06/23/2024 3:59 PM EDT us Mary Feliciano MD LAB BLOOD ORDERABLES Final Result Performing Organization Address [facility]/ZIP Co de Phone Number [facility] [address] [place] [phone] * (ABNORMAL) Lipid Panel, Standard (06/23/2024 3:22 PM EDT) Triglycerides 481(H) <150 mg/dL [facility] Comment:Desirable Triglyceri de: less than 150 mg/dLBorderline High Triglyceride 150-199 mg/dLHigh Triglyceride: 200-499 mg/dLVery High Triglyceride: greater than or equal to 5OO mg/dL Cholesterol 224(H) <200 mg/dL [facility] Comment:Desirable Cholestero l: less than 200 mg/dLBorderline High Cholesterol: 200-239 mg/dLHigh Cholesterol: greater than 239 mg/dL LDL Cholesterol Calculated TNP <100 mg/dL [facility] Comment:Unable to calculate the LDL. The formula of Friedwald,Huffman, and Eryn is only valid if the triglycerides areless than 400 mg/dl. HDL Cholesterol 48 >40 mg/dL [facility] Comment:Desirable HDL: great er than 40 mg/dL Note: This HDL assay may give artificially low results in patients with liver disease. Blood Venous blood specimen / Unknown 06/23/2024 3:22 PM EDT 06/23/2024 3:59 PM EDT us Mary Feliciano MD LAB BLOOD ORDERABLES Final Result [facility] [address] [place] [phone] * (ABNORMAL) Comprehensive Metabolic Panel (06/23/2024 3:22 PM EDT) Sodium 139 135 - 145 mmol/L [facility] Potassium 3.8 3.3 - 5.1 mmol/L [facility] Chloride 107 96 - 108 mmol/L [facility] Carbon Dioxide 25 22 - 29 mmol/L [facility] Anion Gap 11(L) 12 - 20 [facility] Urea Nitrogen (BUN) 9 9 - 16 mg/dL [facility] Creatinine, Serum 0.68 0.5 - 1.4 mg/dL [facility] Estimated Glomerular Filt Rate >60 [facility] Comment:Chronic Kidney Disea se: Estimated GFR < 60 mL/min/1.07x6Igpeqo Kidney Disease: Estimated GFR < 15 mL/min/1.73m2 Glucose 95 60 - 115 mg/dL [facility] Calcium 9.1 8.4 - 10.2 mg/dL [facility] Bilirubin, Total 0.2 0.0 - 1.0 mg/dL [facility] Aspartate Amino Transferase 22 5 - 31 U/L [facility] Alanine Aminotransferase 19 0 - 31 U/L [facility] Total Protein 7.3 6.5 - 8.0 g/dL [facility] Albumin Level 4.1 3.5 - 5.0 g/dL [facility] Alkaline Phosphatase 81 39 - 117 U/L [facility] Blood Venous blood specimen / Unknown 06/23/2024 3:22 PM EDT 06/23/2024 3:59 PM EDT us Mary Feliciano MD LAB BLOOD ORDERABLES Final Result [facility] [address] [place] [phone] * THINPREP TIS PAP AND HPV mRNA E6/E7, CT/NG, TRICH (11/30/2021 12:00 AM EDT) Chlamydia trachomatis RNA, TMA, Urogenital NOT DETECTED NOT DETECTED [facility] Clinical Information: None given [facility] COMMENT SEE COMMENT [facility] Comment: The analytical performance characteristics of this assay, when used to test SurePath(TM) specimens have been determined by [facility]. The modifications have not been cleared or approved by the FDA. This assay has been validated pursuant to the CLIA regulations and is used for clinical purposes. ?? For additional information, please refer to https://education.[email or web address]/faq/BJJ420 (This link is being provided for information/ educational purposes only.) ?? COMMENT SEE COMMENT [facility] Comment: EXPLANATORY NOTE: ? The Pap is a screening test for cervical cancer. It is ?? not a diagnostic test and is subject to false negative ?? and false positive results. It is most reliable when a ?? satisfactory sample, regularly obtained, is submitted ?? with relevant clinical findings and history, and when ?? the Pap result is evaluated along with historic and ?? current clinical information. ?? COMMENT: This Pap test has been evaluated with computer assisted technology. [facility] Deckhand Engineer: SEE COMMENT [facility] Comment: SL, CT(ASCP) CT screening location: [address] ??[phone] HPV nRNA E6/E7 Not Detected Not Detected [facility] Comment: Methodology: Wildlife Control Agent-Mediated Amplification This assay detects E6/E7 viral messenger RNA (mRNA) from 14 high-risk HPV types (16,18,31,33,35,39,45,51,52,56,58,59,66,68). ? Cervical sources are required for HPV testing. If a vaginal source from a patient who has had a total hysterectomy with removal of cervix was ?? submitted, please contact the testing laboratory for alternative testing options. ?? For additional information, please refer to http://education.[email or web address]/faq/ATT259i1 (This link if provided for information/ educational purposes only.) Infection Shift in vaginal du suggestive of bacterial vaginosis. [facility] Interpretation/Re sult: Negative for intraepithelial lesion or malignancy. [facility] LMP: NONE GIVEN [facility] Neisseria gonorrhoeae RNA, TMA, Urogenital NOT DETECTED NOT DETECTED [facility] Prev. BX: NONE GIVEN [facility] Prev. PAP: NONE GIVEN [facility] SOURCE: None given [facility] Statement Of Adequacy: SEE COMMENT [facility] Comment: Satisfactory for evaluation. Endocervical/transformation zone component present. Age and/or menstrual status not provided Trichomonas vaginalis, QL, TMA, PAP Vial NOT DETECTED NOT DETECTED [facility] Comment: The analytical performance characteristics of this assay have been determined by [facility]. The modifications have not been cleared or approved by the FDA. This assay has been validated pursuant to the CLIA regulations and is used for clinical purposes. ?? For additional information, please refer to [email or web address]/ faq/Trichomonastma (This link is being provided for information/ educational purposes only.) ?? 11/30/2021 Mary Feliciano MD LAB PATHOLOGY ORDERAB LES Final Result [facility] * HEPATITIS C AB W/REFL TO HCV RNA, QN, PCR (12/11/2019 3:27 PM EDT) HEPATITIS C ANTIBODY NON-REACT IBIS NON-REACT IBIS [facility] INDEX 0.02 <1.00 [facility] Comment: ?? HCV antibody was non-reactive. There is no laboratory ?? evidence of HCV infection. ?? In most cases, no further action is required. However, if recent HCV exposure is suspected, a test for HCV RNA (test code 61643) is suggested. ?? For additional information please refer to http://[employer]/faq/QQC45i3 (This link is being provided for informational/ educational purposes only.) ?? HEPATITIS C ANTIBODY NON-REACT IBIS NON-REACT IBIS [facility] INDEX 0.02 <1.00 [facility] Comment: ?? HCV antibody was non-reactive. There is no laboratory ?? evidence of HCV infection. ?? In most cases, no further action is required. However, if recent HCV exposure is suspected, a test for HCV RNA (test code 51962) is suggested. ?? For additional information please refer to [email or web address]/faq/TYZ12s9 (This link is being provided for informational/ educational purposes only.) ?? HEPATITIS C ANTIBODY NON-REACT IBIS NON-REACT IBIS [facility] INDEX 0.02 <1.00 [facility] Comment: ?? HCV antibody was non-reactive. There is no laboratory ?? evidence of HCV infection. ?? In most cases, no further action is required. However, if recent HCV exposure is suspected, a test for HCV RNA (test code 60055) is suggested. ?? For additional information please refer to http://[employer]/faq/ZCY11t2 (This link is being provided for informational/ educational purposes only.) ?? HEPATITIS C ANTIBODY NON-REACT IBIS NON-REACT IBIS [facility] INDEX 0.02 <1.00 [facility] Comment: ?? HCV antibody was non-reactive. There is no laboratory ?? evidence of HCV infection. ?? In most cases, no further action is required. However, if recent HCV exposure is suspected, a test for HCV RNA (test code 06301) is suggested. ?? For additional information please refer to http://[employer]/faq/JID07y3 (This link is being provided for informational/ educational purposes only.) ?? HEPATITIS C ANTIBODY NON-REACT IBIS NON-REACT IBIS [facility] INDEX 0.02 <1.00 [facility] Comment: ?? HCV antibody was non-reactive. There is no laboratory ?? evidence of HCV infection. ?? In most cases, no further action is required. However, if recent HCV exposure is suspected, a test for HCV RNA (test code 73488) is suggested. ?? For additional information please refer to [email or web address]/faq/VWM96b2 (This link is being provided for informational/ educational purposes only.) ?? 12/11/2019 3:27 PM EDT Carey CONCEPCION HISTORICAL/NON ORDERABLE LABS Final Result [facility] [address] * HIV 1/2 ANTIGEN/ANTIBODY,FOURTH GENERATION W/RFL (12/11/2019 3:27 PM EDT) HIV-1/2 ANTIGEN AND ANTIBODIES, 4TH GENERATION W/ REFLEX NON-REACT IBIS NON-REACT IBIS [facility] Comment: HIV-1 antigen and HIV-1/HIV-2 antibodies were not detected. There is no laboratory evidence of HIV infection. ?? PLEASE NOTE: This information has been disclosed to you from records whose confidentiality may be protected by state law. ??If your state requires such protection, then the state law prohibits you from making any further disclosure of the information without the specific written consent of the person to whom it pertains, or as otherwise permitted by law. A general authorization for the release of medical or other information is NOT sufficient for this purpose. ? For additional information please refer to [email or web address]/faq/GGK280 (This link is being provided for informational/ educational purposes only.) ? The performance of this assay has not been clinically validated in patients less than 2 years old. ?? HIV-1/2 ANTIGEN AND ANTIBODIES, 4TH GENERATION W/ REFLEX NON-REACT IBIS NON-REACT IBIS [facility] Comment: HIV-1 antigen and HIV-1/HIV-2 antibodies were not detected. There is no laboratory evidence of HIV infection. ?? PLEASE NOTE: This information has been disclosed to you from records whose confidentiality may be protected by state law. ??If your state requires such protection, then the state law prohibits you from making any further disclosure of the information without the specific written consent of the person to whom it pertains, or as otherwise permitted by law. A general authorization for the release of medical or other information is NOT sufficient for this purpose. ? For additional information please refer to http://[employer]/faq/SFR499 (This link is being provided for informational/ educational purposes only.) ? The performance of this assay has not been clinically validated in patients less than 2 years old. ?? HIV-1/2 ANTIGEN AND ANTIBODIES, 4TH GENERATION W/ REFLEX NON-REACT IBIS NON-REACT IBIS [facility] Comment: HIV-1 antigen and HIV-1/HIV-2 antibodies were not detected. There is no laboratory evidence of HIV infection. ?? PLEASE NOTE: This information has been disclosed to you from records whose confidentiality may be protected by state law. ??If your state requires such protection, then the state law prohibits you from making any further disclosure of the information without the specific written consent of the person to whom it pertains, or as otherwise permitted by law. A general authorization for the release of medical or other information is NOT sufficient for this purpose. ? For additional information please refer to http://[email or web address]/faq/XFH564 (This link is being provided for informational/ educational purposes only.) ? The performance of this assay has not been clinically validated in patients less than 2 years old. ?? 12/11/2019 3:27 PM EDT us Carey Olson [facility] B[facility]OD ORDERABLES Final Res ult [facility] [address] from Last 3 Months or Most Recently Relevant to Health Maintenance Insurance [employer] Care Teams Bi Application Developer Relationship Specialty Start Date End Date Mary Jenkins MD [address] [place] [phone] PCP - General Family Medicine 01/29/19
--- OUTSIDE RECORDS SUMMARY | 2024-06-23 18:11 | XMS_ITS | Encounter Summary ---
Author Organization [employer] Address [address] [place] [address] Care Team Providers Care Steel Pan Form Placing Supervisor Name Role Phone Mayr Jenkins MD Primary Care Provide r Encounter Details Date Type Department Care Team ([facility] Contact Info) Description 02/02/2022 Orders Only [facility] [address] [place] [phone] Rosi Garber MD [address] [place] [id number] Sprain of left ankle, unspecified ligament, subsequent encounter (Primary Dx) Social History Tobacco Use Types Packs/Day Years Used Date Smoking Tobacco: Never Assessed Comments Unknown Sex and Gender Information Value Date Recorded Sex Assigned at Female 12/25/2021 10:15 AM EDT Legal Sex Female 10:15 AM EDT Gender Identity Female 12/25/2021 10:15 AM EDT Sexual Orientation Straight 12/25/2021 10 :15 AM EDT documented as of this encounter Plan of Treatment Upcoming Encounters Date Type Department Care Team (Late Contact Info) Description 07/30/2024 11:30 AM EDT Telemedicine [facility] [address] [place] [address] [phone] Mary Jenkins MD [address] [place] [address] [phone] documented as of this encounter Visit Diagnoses Diagnosis Sprain of left ankle, unspecified ligament, subsequent encounter- Primary documented in this encounter Care Teams [employer] Form Placing Supervisor Relationship Specialty Start Date End Date Mary Jenkins MD [address] [place] [phone] PCP - General Family Medicine 01/29/19 documented as of this encounter
[2024-06-24 08:09] LABS: HIV AB/AG Nonreactive (Nonreactive); HIV Num 1 0.05 S/CO (0.00-0.99); ~Hepatitis C Antibody Nonreactive (Nonreactive)
== END 2024-06-23 15:21 | disposition home or self-care (01) ==
LOC: HO.HHCL 15:20
PROVIDERS: Visit Provider Internal Medicine
DX: Z00.00 Encounter for general adult medical examination without abnormal findings (principal); E66.813 Obesity, class 3; Z68.41 Body mass index [BMI] 40.0-44.9, adult
CPT/HCPCS: 36415; 80053; 80061; 82248; 82306; 83036; 84443; 85025; 86803; 87389